=== PATIENT | female | born 1970 | race Caucasian/White ===

== ENCOUNTER 2019-11-06 19:22 | Emergency (ER) | payer OTHER ==
[~2019-11-06] VITALS: Ht 167.7 cm; Wt 120.9 kg
[2019-11-06 19:25] VITALS: BP 159/113
--- OUTSIDE RECORDS SUMMARY | 2019-11-06 19:31 | XMS REPORT ---
Author Author GARCIAPaige Huitron Organization [facility] Address [address] [place] [address] Care Team Providers Care Furnace Mechanic Name Role Phone JOE GARCIA Unavailable PROBLEMS Type Condition ICD9-CM Code [id number] Code Onset Dates Condition S tatus SNOMED Code Problem Hypertension I10 May, Active 3834 1003 Problem Enlarged uterus N85.2 Apr, Active 1 04005594 Problem Generalized anxiety disorder F41.1 May, 2 Active 47514851 Problem Urinary, incontinence, stress female N39.3 Apr, Active 59309135 Problem Hemorrhoid K64.9 Apr, Active 610706 02 Problem Morbid obesity with BMI of 45.0-49.9, adult E66 .01 Apr, Active 853523447 Problem Allergic rhinitis J30.9 Nov, Active 75947339 Problem Insulin resistance E88.81 Apr, Active 188607758 Problem Uterine prolapse N81.4 Apr, Active 11333114 Problem Moderate episode of recurrent major depressive disorder F33.1 Active 510898485 Problem Type 2 diabetes mellitus wit h diabetic polyneuropathy, without long-term current use of insulin E11.42 Active 08818 006 Problem Midline cystocele N81.11 Apr, Active 529745599 Problem Seasonal allergic rhinitis due to pollen J30.1 Active 96546370 Problem Depression F32.9 Apr, Active 957356 005 Problem Essential hypertension I10 Active 42115542 Problem Well woman exam with routine gynecological exam Z0 1.419 Active 505113831 Problem Anxiety F41.9 Active 82177441 Problem Mild intermittent asthma without complication J45. 20 Active 800717025 ALLERGIES No Information ENCOUNTERS Encounter Location Date Diagnosis [address] [place] [address] Jun, Generalized anxiety disorder F41.[address] [place] [address] Apr, Generalized anxiety disorder F41.1 [facility] [address] [place] [address] Mar, UTI (lower urinary tract inf ection) N39.0 and UTI symptoms R39.[address] [place] [address] Feb, Generalized anxiety disorder F41.[address] [place] [address] Feb, Acute recurrent pansinusitis J01.41 and Yeast infection B37.9 [facility] [address] [place] [address] Feb, Seasonal allergic rhinitis d ue to pollen J30.[address] [place] [address] Jan, Generalized anxiety disorder F41.1 [facility] [address] [place] [address] Dec, Dysuria R30.0 and Morbid obe sity E66.01 [facility] [address] [place] [address] Dec, Acute cystitis without hemat uria N30.00 ; UTI symptoms R39.9 and Morbid obesity E66.[address] [place] [address] Dec, Generalized anxiety disorder F41.1 ; Hypertension I10 ; Depression F32.9 ; Type 2 diabetes mellitus with diabetic polyneuropathy, without long-term current use of insulin E11.42 ; Morbid obesity E66.01 and Acute pansinusitis, recurrence not specified J01.40 [address] [place] [address] Dec, Essential hypertension I10 [address] [place] [address] Nov, Anxiety F41.9 [address] [place] [address] October, Anxiety F41.9 [address] [place] [address] October, Acute pansinusitis, recurren ce not specified J01.40 [address] [place] [address] Sep, Anxiety F41.9 [address] [place] [address] Aug, Essential hypertension I10 a nd Type 2 diabetes mellitus with diabetic polyneuropathy, without long-term current use of insulin E11.42 [address] [place] [address] Aug, Well woman exam with routine gynecological exam Z01.419 ; Anxiety F41.9 ; Essential hypertension I10 ; Moderate episode of recurrent major depressive disorder F33.1 ; Mild intermittent asthma without complication J45.20 ; Type 2 diabetes mellitus with diabetic polyneuropathy, without long- term current use of insulin E11.42 ; Yeast dermatitis B37.2 and Morbid obesity E66.01 [address] [facility] [place] [address] Jun, [id number] [place] [address] May, [id number] [place] [address] May, IMMUNIZATIONS No Known Immunizations SOCIAL HISTORY Never Assessed REASON FOR VISIT Lab orders PLAN OF CARE VITAL SIGNS MEDICATIONS Unknown Medications RESULTS No Results PROCEDURES No Known procedures INSTRUCTIONS MEDICATIONS ADMINISTERED No Known Medications MEDICAL (GENERAL) HISTORY Type Description Date Medical History hypertension Medical History anxiety Medical History depression Medical History migraine headaches Medical History acid reflux Surgical History Cataract, both eyes Surgical History dilatation and curettage Surgical History Miscarriage Hospitalization History Miscarriage Hospitalization History childbirth
--- OUTSIDE RECORDS SUMMARY | 2019-11-06 19:31 | XMS REPORT ---
Author Author Paige MCNEIL Organization [facility] Address [address] [place] [address] Care Team Providers Care Hardware Installation Coordinator Name Role Phone DAVIDSON MCNEIL Unavailable PROBLEMS Type Condition ICD9-CM Code [id number] Code Onset Dates Condition S tatus SNOMED Code Problem Well woman exam with routine gynecological exam Z0 1.419 Active 714634701 Problem Anxiety F41.9 Active 73197193 Problem Type 2 diabetes mellitus wit h diabetic polyneuropathy, without long-term current use of insulin E11.42 Active 41692 006 Problem Moderate episode of recurrent major depressive disorder F33.1 Active 747295329 Problem Mild intermittent asthma without complication J45. 20 Active 923688640 Problem Essential hypertension I10 Active 76736870 ALLERGIES Substance Reaction Event Type Date Status Benadryl Unknown Drug Allergy Aug, Active ENCOUNTERS Encounter Location Date Diagnosis [facility] [address] [place] [address] Aug, Well woman exam with routine gynecologic al exam Z01.419 ; Anxiety F41.9 ; Essential hypertension I10 ; Moderate episode of recurrent major depressive disorder F33.1 ; Mild intermittent asthma without complication J45.20 ; Type 2 diabetes mellitus with diabetic polyneuropathy, without long-term current use of insulin E11.42 ; Yeast dermatitis B37.2 and Morbid obesity E66.01 IMMUNIZATIONS No Known Immunizations SOCIAL HISTORY Never Assessed REASON FOR VISIT Well Woman Exam PLAN OF CARE Activity Details Follow Up 3 Months,prn Reason:Anxiety/ DM VITAL SIGNS Height 66 in 2018-08-31 Weight 264 lbs 2018-08-31 BMI 42.61 kg/m2 2018-08-31 Blood pressure systolic 120 mmHg 2018-08-31 Blood pressure diastolic 84 mmHg 2018-08-31 MEDICATIONS Medication Instructions Dosage Frequency Start Date End Date Duration S tatus Hydrochlorothiazide 25 MG Orally Once a day 1 tablet in the morning 24h Active Alprazolam 0.5 MG Orally Twice a day 1 tablet 12h 28 days Active Gabapentin 300 MG Orally Once a day 1 capsule 24h 30 day(s) Active Albuterol Sulfate HFA 108 (90 Base) MCG/ACT Inhalation every 6 hrs 2 puffs as needed 6h Active Meloxicam 15 MG Orally Once a day 1 tablet 24h 30 da y(s) Active Propranolol HCl 20 MG Orally Once a day 1 tablet on an empty stomach 24h Active Metformin HCl 500 MG Orally Once a day 1 tablet with a meal 24h Active Nystatin 874107 UNIT/GM Externally Twice a day 1 application to affected area 12Aug, 14 days Active Singulair 10 MG Orally Once a day 1 tablet 24h 30 da y(s) Active Lexapro 20 MG Orally Once a day 1 tablet 24h Active RESULTS No Results PROCEDURES Procedure Date Ordered Result Body Site SPECIMEN HANDLING August 31, 2018 INSTRUCTIONS MEDICATIONS ADMINISTERED No Known Medications MEDICAL (GENERAL) HISTORY Type Description Date Medical History hypertension Medical History anxiety Medical History depression
--- OUTSIDE RECORDS SUMMARY | 2019-11-06 19:31 | XMS REPORT | Continuity of Care Document ---
Author Organization Unknown Address Unknown Phone Unavailable Allergies There is no data. Medications There is no data. Problems There is no data. Procedures There is no data. Results Test Result Range SUREPATH PAP AND HPV mRNA E6/E7 - 10:36 CLINICAL INFORMATION: NRG LMP: UNKNOWN NRG PREV. PAP: UNKNOWN NRG PREV. BX: UNKNOWN NRG SOURCE: Endocervix NRG STATEMENT OF ADEQUACY: NRG INTERPRETATION/RESULT: NRG WOOL CLASSER: NRG HPV mRNA E6/E7, SUREPATH VIAL Not Detected NOT DETECTED COMMENT NRG CULTURE, URINE - 01/16/19 12:34 CULTURE, URINE, ROUTINE SEE NOTE NRG CULTURE, URINE - 04/26/19 04:24 CULTURE, URINE, ROUTINE SEE NOTE NRG PDM - 09 PANEL (PROFILE 1) - 09/01/19 09 :19 Prescribed Drug 1 Alprazolam NRG Creatinine 156.9 mg/dL > or = 20.0 pH 7.0 4.5-9.0 Oxidant NEGATIVE mcg/mL <200 Amphetamines NEGATIVE ng/mL <500 medMATCH Amphetamines CONSISTENT NRG Benzodiazepines NEGATIVE ng/mL <100 medMATCH Benzodiazepines INCONSISTENT N RG Marijuana Metabolite NEGATIVE ng/mL <20 medMATCH Marijuana Metab CONSISTENT NRG Cocaine Metabolite NEGATIVE ng/mL <150 medMATCH Cocaine Metab CONSISTENT NRG Opiates NEGATIVE ng/mL <100 medMATCH Opiates CONSISTENT NRG Oxycodone NEGATIVE ng/mL <100 medMATCH Oxycodone CONSISTENT NRG COMMENT NRG Barbiturates NEGATIVE ng/mL <300 medMATCH Barbiturates CONSISTENT NRG Methadone Metabolite NEGATIVE ng/mL <100 medMATCH Methadone Metab CONSISTENT NRG Phencyclidine NEGATIVE ng/mL <25 medMATCH Phencyclidine CONSISTENT NRG LIPID PANEL - 10/21/19 09:20 CHOLESTEROL, TOTAL 147 mg/dL <200 HDL CHOLESTEROL 53 mg/dL > OR = 50 TRIGLYCERIDES 190 mg/dL <150 LDL-CHOLESTEROL 68 mg/dL (calc) NRG CHOL/HDLC RATIO 2.8 (calc) <5.0 NON HDL CHOLESTEROL 94 mg/dL (calc) <130 CMP - 10/21/19 09:20 GLUCOSE 84 mg/dL 65-99 UREA NITROGEN (BUN) 12 mg/dL 7-25 CREATININE 0.81 mg/dL 0.50-1.10 eGFR NON-AFR. CHILEAN 86 mL/min/1.73m2 > OR = 60 eGFR 100 mL/min/1.73m2 > OR = 60 BUN/CREATININE RATIO NOT APPLICABLE (calc) 6-22 SODIUM 136 mmol/L 135-146 POTASSIUM 3.5 mmol/L 3.5-5.3 CHLORIDE 103 mmol/L 98-110 CARBON DIOXIDE 24 mmol/L 20-32 CALCIUM 9.1 mg/dL 8.6-10.2 PROTEIN, TOTAL 6.4 g/dL 6.1-8.1 ALBUMIN 3.6 g/dL 3.6-5.1 GLOBULIN 2.8 g/dL (calc) 1.9-3.7 ALBUMIN/GLOBULIN RATIO 1.3 (calc) 1.0-2. 5 BILIRUBIN, TOTAL 0.4 mg/dL 0.2-1.2 ALKALINE PHOSPHATASE 59 U/L 31-125 AST 21 U/L 10-35 ALT 11 U/L 6-29 A1C - 10/21/19 09:20 HEMOGLOBIN A1c 5.7 % of total Hgb <5.7 Encounters ACCT No. Visit Date/Time Discharge Status Pt. Type Provider Facility Loc./Unit Complaint [id number] 10/06/2019 13:00:00 10/06/2019 23:59: 59 [facility] Outpatient DAVIDSON MCNEIL [facility] [id number] 10/21/2019 09:30:00 Document Registration [id number] 09/01/2019 08:20:00 Document Registration [id number] 04/24/2019 11:20:00 Document Registration [id number] 01/16/2019 12:10:00 Document Registration [id number] 08/31/2018 09:00:00 Document Registration
--- NOTE | 2019-11-06 19:49 | Diagnostic Imaging Report ---
INDICATION: Fall with ankle pain. COMPARISON: None available. TECHNIQUE: 3 views of the right ankle were obtained. FINDINGS: There is a small avulsion fracture off the inferior most tip of the lateral malleolus. No fracture of the medial or posterior malleoli. Ankle mortise is congruent. Soft tissue swelling is noted laterally. Small plantar calcaneal spur. IMPRESSION: Acute avulsion fracture in the tip of the lateral malleolus. Dictated by: Dictated on workstation # [id number]
--- NOTE | 2019-11-06 19:51 | ED Lower Extremity ---
General Chief Complaint: Lower Extremity Stated Complaint: FELL AND HURT RIGHT ANKLE Nursing Triage Note: Patient states that she tripped and fell while at her sisters house. Patient is complaining of right ankle pain. Nursing Sepsis Screen: No Definite Risk History of Present Illness Date Seen by Provider: November 06, 2019 Time Seen by Provider: 19:15 Initial Comments Just prior to arrival stepped on a step twisting her right ankle feeling a pop. Severe pain unable to bear weight brought in by wheelchair previous history injury in that ankle on multiple meds for anxiety. Onset: just prior to arrival Pain/Injury Location: right ankle Method of Injury: fell Modifying Factors: Worse With Movement Allergies and Home Medications Allergies Coded Allergies: No Known Drug Allergies (Unverified , 11/06/19) Patient Home Medication List Home Medication List Reviewed: Yes Review of Systems Constitutional: no symptoms reported Musculoskeletal: joint pain, joint swelling Skin: no symptoms reported Psychiatric/Neurological: Denies Numbness, Denies Tingling Past Fgiovsx-Jgqesw-Qncejh Hx Past Med/Social Hx: Reviewed Nursing Past Med/Soc Hx Patient Social History Recent Foreign Travel: No Contact w/Someone Who Travel: No Recent Infectious Disease Expo: No Physical Abuse: No Sexual Abuse: No Mistreated: No Fear: No Physical Exam Vital Signs Vital Signs - First Documented 11/06/19 19:25 Temp 37.0 Pulse 113 Resp 26 B/P (MAP) 159/113 (128) Pulse Ox 98 O2 Delivery Room Air Capillary Refill : Less Than 3 Seconds Height, Weight, BMI Height: '" Weight: lbs. oz. kg; 42.00 BMI Method: General Appearance: WD/WN, mild distress Ankles: left ankle non-tender, left ankle normal inspection; right ankle deformity, right ankle limited range of motion, right ankle pain, right ankle soft tissue tenderness, right ankle swelling Feet: right foot other (poor range of motion due to pain particular tenderness external to the joint.) Neurologic/Psychiatric: no motor/sensory deficits, alert, normal mood/affect, oriented x 3 Skin: normal color, warm/dry Progress/Results/Core Measures Results/Orders My Orders Orders - LAWRENCE RENAE JR, MD Ankle 3 View Right (11/06/19 19:30) Hydrocodone/Apap 5/325 Tablet (Lortab 5 (11/06/19 20:00) Alprazolam Tablet (Xanax Tablet) (11/06/19 20:00) Vital Signs/I&O 11/06/19 19:25 Temp 37.0 Pulse 113 Resp 26 B/P (MAP) 159/113 (128) Pulse Ox 98 O2 Delivery Room Air Blood Pressure Mean: 128 Progress Progress Note : Time: 19:54 Progress Note Avulsion off the tip of the fibula with question of more medial part of the fibula fracture as well. We'll go ahead with with a boot crutches as needed follow-up within the next week with her PCP. Departure Impression Primary Impression: Avulsion fracture of distal fibula Disposition: HOME, SELF-CARE Condition: Stable Departure-Patient Inst. Referrals: DAVIDSON MCNEIL APRN (PCP/Family) Primary Care Physician Patient Instructions: Avulsion Fracture LAWRENCE RENAE JR, MD November 06, 2019 19:51
[2019-11-06] MEDS ORDERED: RX-HYDROCODONE/APAP 5/325 MG #4 TAB PK PO PRN (20:00)
[2019-11-06] MEDS ORDERED: HYDROcodone/APAP 5 MG/325 MG (LORTAB) TAB PO ONE (20:00)
[2019-11-06] MEDS ORDERED: ALPRAZolam 0.25 MG (XANAX) TAB PO ONE (20:00)
== END 2019-11-06 20:08 | disposition home or self-care (01) ==
LOC: ER FS 19:26
DX: S82.831A Other fracture of upper and lower end of right fibula, initial encounter for closed fracture (principal); X50.1XXA Overexertion from prolonged static or awkward postures, initial encounter; Y92.019 Unspecified place in single-family (private) house as the place of occurrence of the external cause
CPT/HCPCS: 73610

== ENCOUNTER → 2019-11-08 | Outpatient (CLI) | payer OTHER ==
--- NOTE | 2019-11-08 10:47 | Diagnostic Imaging Report ---
INDICATION: Right ankle fracture. TECHNIQUE/COMPARISON: AP and lateral views of the right ankle were obtained and compared to 11/06/2019. FINDINGS: There is a curvilinear calcification, compatible with an avulsed fragment off the inferior tip of the lateral malleolus of the distal fibula. This is unchanged in size and appearance compared to the prior study. The remaining bony structures are intact. There is some plantar calcaneal spurring. Soft tissue swelling is noted. IMPRESSION: Stable avulsion fracture off the tip of the distal fibula. Soft tissue swelling. No new abnormality. Dictated by: Dictated on workstation # [id number]
== END ==
LOC: RAD FS 09:45
PROVIDERS: ATTEND Nurse Practitioner
DX: S82.301A Unspecified fracture of lower end of right tibia, initial encounter for closed fracture (principal); X58.XXXA Exposure to other specified factors, initial encounter
CPT/HCPCS: 73600

== ENCOUNTER → 2019-11-24 | Outpatient (CLI) | payer OTHER ==
--- NOTE | 2019-11-24 09:07 | Diagnostic Imaging Report ---
EXAMINATION: Right ankle, 3 views INDICATION: Follow-up of fracture. COMPARISON: Prior ankle radiographs performed on 11/06/2019 and 11/08/2019. FINDINGS: Again demonstrated is an avulsion fracture involving the distal aspect of the fibula, with no significant change in avulsed fracture fragment inferior to the lateral malleolus. No prominent periosteal reaction is demonstrated. No new fracture is identified. The ankle mortise appears intact, including medial and lateral clear space. No osteochondral lesion of the talar dome is appreciated. Incidental note is made of a small plantar calcaneal spur. There is persistent edema in the ankle soft tissues. IMPRESSION: No change in avulsion fracture of the distal fibula. No new fracture or acute osseous abnormality. There is persistent edema of the ankle soft tissues. Dictated by: Dictated on workstation # [id number]
== END ==
LOC: RAD FS 08:27
PROVIDERS: ATTEND Nurse Practitioner
DX: S82.831A Other fracture of upper and lower end of right fibula, initial encounter for closed fracture (principal); X58.XXXA Exposure to other specified factors, initial encounter
CPT/HCPCS: 73610

== ENCOUNTER → 2020-11-14 | Outpatient (CLI) | payer OTHER ==
--- NOTE | 2020-11-14 11:09 | Diagnostic Imaging Report ---
INDICATION: Back pain. Time of exam 10:53 a.m. Alignment is normal. Vertebral body heights are maintained. No acute compression fracture is seen. There is generalized lumbar spondylosis with variable disc space narrowing and marginal spurring. This appears greatest at the L5-S1 level. Lower lumbar facet arthropathy is also noted. IMPRESSION: Lumbar spondylosis. No acute bony abnormality is detected. Dictated by: Dictated on workstation # [id number]
== END ==
LOC: RAD 10:35
PROVIDERS: ATTEND Family Medicine
DX: Z02.71 Encounter for disability determination (principal); M47.816 Spondylosis without myelopathy or radiculopathy, lumbar region
CPT/HCPCS: 72100

== ENCOUNTER → 2021-02-19 | Outpatient (CLI) | payer OTHER ==
[~2021-02-19] MED LIST: RT-ALBUTEROL SULF 2.5 MG/3 ML PRE-MIX VIAL INH ONE
== END ==
LOC: RT 09:30
PROVIDERS: ATTEND Internal Medicine Cardiovascular Disease
DX: R07.9 Chest pain, unspecified (principal); R06.00 Dyspnea, unspecified
CPT/HCPCS: 93306; 94060; 94726; 94729

== ENCOUNTER → 2021-03-07 | Outpatient (CLI) | payer OTHER ==
[2021-03-07 10:43] VITALS: BP 129/79
--- NOTE | 2021-03-07 17:09 | Cardiology Stress Test Report ---
Stress Test Report Date of Procedure/Referring: Date of Procedure: Mar 07, 2021 PCP Osbaldo Hillman Jr, MD Admitting Physician Indications: Chest pain. Baseline Blood Pressure: Blood Pressure Systolic: 129 Blood Pressure Diastolic: 79 Baseline EKG: Baseline EKG: Sinus rhythm with short CT interval. Summary/Conclusion: PROCEDURE: The patient was exercised for a total of 3 minutes of the standard Bebo protocol achieving a maximum MET level of 4.6. The resting heart rate was 81 bpm and the peak heart rate was 161 bpm, which represents 94% of the maximum predicted heart rate. The resting blood pressure was 129/79 mmHg and the peak blood pressure was 169/75 mmHg. This represents a tachycardic heart rate and a normal blood pressure response to exercise. The test was stopped due to shortness of breath. There was no exercise-induced chest discomfort, arrhythmias, or electrocardiogram changes during the test. The patient exhibited poor exercise capacity for age. IMPRESSION: 1. Tachycardic heart rate and a normal blood pressure response to exercise. 2. There was no exercise-induced chest discomfort, arrhythmias, or electrocardiogram changes during the test. 3. The patient exhibited poor exercise capacity for age at 3 minutes of the Bebo protocol. 4. This is negative exercise treadmill test other than findings consistent with significant exercise intolerance and deconditioning. Certain portions of this document may have been dictated utilizing voice recognition technology. Inherent to this technology, typographical and grammatical errors may exist. As much as I am diligent to identify and correct these mistakes, some errors may remain in the document. OSBALDO HILLMAN JR, MD Mar 07, 2021 17:09
== END ==
LOC: CARD 11:00
PROVIDERS: ATTEND Internal Medicine Cardiovascular Disease
DX: R07.9 Chest pain, unspecified (principal)
CPT/HCPCS: 93017

== ENCOUNTER → 2021-03-29 | Outpatient (CLI) | payer OTHER ==
--- NOTE | 2021-03-29 12:19 | Diagnostic Imaging Report ---
EXAMINATION: Chest 2 view HISTORY: Short of breath COMPARISON: None available. FINDINGS: The lungs are clear without edema or pneumonia. No pleural effusion or pneumothorax. Heart size is normal. IMPRESSION: 1. Clear lungs. Dictated by: Dictated on workstation # [id number]
== END ==
LOC: RAD 11:16
PROVIDERS: ATTEND Internal Medicine Cardiovascular Disease
DX: R06.09 Other forms of dyspnea (principal)
CPT/HCPCS: 71046

== ENCOUNTER → 2021-05-09 | Outpatient (CLI) | payer OTHER ==
--- NOTE | 2021-05-09 12:36 | Diagnostic Imaging Report ---
EXAMINATION: Right knee radiographs, 3 views. COMPARISON: None. HISTORY: 50-year-old female, right knee pain. FINDINGS: The joint spaces are well preserved. There is no knee joint effusion. There is no identified acute fracture. There is no identified bone lesion. IMPRESSION: Unremarkable radiographs of the right knee. Dictated by: Dictated on workstation # [id number]
== END ==
LOC: RAD 10:19
PROVIDERS: ATTEND Internal Medicine Rheumatology
DX: M25.561 Pain in right knee (principal)
CPT/HCPCS: 73562

== ENCOUNTER 2021-07-25 15:39 | Emergency (ER) | payer OTHER ==
[~2021-07-25] VITALS: Ht 167.7 cm; Wt 125.2 kg
--- NOTE | 2021-07-25 16:05 | ED General ---
General Chief Complaint: COVID19 Suspect/Confirmed Stated Complaint: SOA,COUGH Source of Information: Patient Exam Limitations: No Limitations History of Present Illness Date Seen by Provider: Jul 25, 2021 Time Seen by Provider: 15:45 Initial Comments Patient is 50 year old female with history of asthma who presents with acute asthma exacerbation. Patient reports shortness of breath with wheezing and occasional cough for the past 4 days. Patient states she is currently out of Singulair and kept her dose of asthma medication yesterday. No fevers chills, nausea vomiting or sweats. Previous Covid infection. No other acute symptoms or complaints. Timing/Duration: 2-3 Days Severity: Mild Modifying Factors: improves with Other Associated Systoms: Other Allergies and Home Medications Allergies Coded Allergies: No Known Drug Allergies (Unverified , 11/06/19) Patient Home Medication List Home Medication List Reviewed: Yes Review of Systems Review of Systems Constitutional: see HPI EENTM: see HPI Respiratory: see HPI Cardiovascular: see HPI Gastrointestinal: see HPI Genitourinary: see HPI Musculoskeletal: see HPI Skin: see HPI Psychiatric/Neurological: See HPI Hematologic/Lymphatic: See HPI All Other Systems Reviewed Negative Unless Noted: Yes Past Esedtld-Jpeltb-Wjoeqn Hx Patient Social History Tobacco Use?: No Smoking Status: Never a Smoker Smokeless Tobacco Frequency: Never a User Use of E-Cig and/or Vaping dev: No Use of E-Cig and/or Vaping Romeo: Never a User Substance use?: No Alcohol Use?: No Pt feels they are or have been: No Seasonal Allergies Seasonal Allergies: Yes Past Medical History Surgeries: Yes (Cataracts, D&C) Respiratory: No Cardiac: Yes (Tachycardia) Neurological: No Genitourinary: No Gastrointestinal: No Musculoskeletal: No Endocrine: No HEENT: No Cancer: No Psychosocial: Yes Anxiety Physical Exam Vital Signs Vital Signs - First Documented Capillary Refill : Height, Weight, BMI Height: '" Weight: lbs. oz. kg; 42.00 BMI Method: General Appearance: No Apparent Distress, Anxious Eyes: Bilateral Eye Normal Inspection, Bilateral Eye PERRL, Bilateral Eye EOMI HEENT: PERRL/EOMI, TMs Normal, Normal ENT Inspection, Pharynx Normal Neck: Full Range of Motion, Non Tender, Supple Respiratory: Chest Non Tender, Decreased Breath Sounds, Wheezing Cardiovascular: Regular Rate, Rhythm, No Edema Gastrointestinal: Non Tender, Soft Extremity: Normal Capillary Refill, Non Tender, No Calf Tenderness Neurologic/Psychiatric: Alert, Oriented x3 Skin: Normal Color, Warm/Dry Focused Exam Sepsis Stage: Ruled Out Progress/Results/Core Measures Suspected Sepsis SIRS Temperature: Pulse: Respiratory Rate: Blood Pressure / Mean: Results/Orders My Orders Orders - LISETH HERNANDEZ DO Dexamethasone Oral Soln (Ed) (Decadron I (07/25/21 16:04) Vital Signs/I&O 07/25/21 07/25/21 15:45 15:45 Temp 36.9 Pulse 95 Resp 14 B/P (MAP) 153/88 (109) O2 Delivery Room Air Room Air Capillary Refill : Departure Communication (Admissions) Mild persistent asthma exacerbation. Decadron given. Will refill Singulair and prescribe steroids. Patient instructed to resume daily asthma medications and follow-up with her PCP. Return precautions reviewed. Patient verbalizes understanding agreement discharge instructions prior to departure. Impression Primary Impression: Asthma exacerbation Disposition: HOME, SELF-CARE Condition: Stable Departure-Patient Inst. Decision time for Depature: 16:22 Referrals: DAVIDSON MCNEIL APRN (PCP/Family) Primary Care Physician Patient Instructions: Asthma, Adult ED Add. Discharge Instructions: Please fill Singulair and prednisone take as directed. Resume all other asthma medications. Follow-up with your PCP in 3 to 5 days. Return to the ED if new or worsening symptoms. All discharge instructions reviewed with patient and/or family. Voiced understanding. Scripts Prednisone (Prednisone) 20 Mg Tab 60 MG PO DAILY, #15 TAB 0 Refills Prov: LISETH HERNANDEZ DO 07/25/21 Montelukast Sodium (Singulair) 10 Mg Tablet 10 MG PO DAILY, #30 TAB Prov: LISETH HERNANDEZ DO 07/25/21 LISETH HERNANDEZ DO Jul 25, 2021 16:05
[2021-07-25] MEDS ORDERED: MONT10TA21 PO (16:24)
[2021-07-25] MEDS ORDERED: PRD20T PO (16:24)
[2021-07-25 16:28] VITALS: BP 141/80
== END 2021-07-25 16:27 | disposition home or self-care (01) ==
LOC: EDUNIT# 15:39 → ER FS 15:41
DX: J45.901 Unspecified asthma with (acute) exacerbation (principal)
CPT/HCPCS: 99283

== ENCOUNTER 2023-01-12 02:27 | Emergency (ER) | payer OTHER ==
[~2023-01-12 02:27] MED LIST changes: +MONT-47 PO; +PRD20T PO; -RT-ALBUTEROL SULF 2.5 MG/3 ML PRE-MIX VIAL INH ONE
--- NOTE | 2023-01-12 02:40 | ED Fall/Injury ---
General Stated Complaint: FALL| LEFT ARM PAIN|LEFT ANKLE PAIN History of Present Illness Date Seen by Provider: Jan 12, 2023 Time Seen by Provider: 02:32 Initial Comments 52 yr female is here with complaints of left elbow and forearm pain and right ankle pain and swelling after she tripped and fell on the curb of the sidewalk today. Patient is unable to bear weight on her ankle. Denies head strike, LOC, dizziness. Allergies and Home Medications Allergies Coded Allergies: No Known Drug Allergies (Unverified , 11/06/19) Patient Home Medication List Home Medication List Reviewed: Yes Montelukast Sodium (Singulair) 10 Mg Tablet, 10 MG PO DAILY Prescribed by: LISETH HERNANDEZ on 07/25/211623 Prednisone (Prednisone) 20 Mg Tab, 60 MG PO DAILY Prescribed by: LISETH HERNANDEZ on 07/25/211623 Review of Systems Review of Systems Constitutional: no symptoms reported Eyes: No Symptoms Reported Ears, Nose, Mouth, Throat: no symptoms reported Respiratory: no symptoms reported Cardiovascular: no symptoms reported Gastrointestinal: no symptoms reported Genitourinary: no symptoms reported Musculoskeletal: joint pain, joint swelling Skin: no symptoms reported Psychiatric/Neurological: No Symptoms Reported Past Fywcorq-Dyhuwt-Pwtrja Hx Seasonal Allergies Seasonal Allergies: Yes Past Medical History Surgeries: Yes (Cataracts, D&C) Respiratory: No Cardiac: Yes (Tachycardia) Neurological: No Genitourinary: No Gastrointestinal: No Musculoskeletal: No Endocrine: No HEENT: No Cancer: No Psychosocial: Yes Anxiety Physical Exam Vital Signs Vital Signs - First Documented 01/12/23 02:30 Temp 36.3 Pulse 82 Resp 18 B/P (MAP) 123/91 (102) Pulse Ox 98 O2 Delivery Room Air Capillary Refill : Height, Weight, BMI Height: '" Weight: lbs. oz. kg; 44.00 BMI Method: General Appearance: WD/WN, no apparent distress, obese HEENT: PERRL/EOMI Neck: full range of motion Extremities: other (Left upper extremity: No obvious deformity seen, no bruises, no swelling. Tenderness present to the elbow as well as the medial one third of the forearm. Right ankle: Swelling and tenderness to the right lateral malleolus area. Patient is unable to bear weight. N/V bundle intact for both extremities that are affected.) Neurologic/Psychiatric: no motor/sensory deficits, alert, oriented x 3 Progress/Results/Core Measures Results/Orders My Orders Orders - MOHAN MALIK MD Ice: Apply To Affected Area (01/12/23 02:35) Ankle 3 View Right (01/12/23 02:37) Elbow 3 View Left (01/12/23 02:37) Forearm 2 View Left (01/12/23 02:37) Ketorolac Injection (Toradol Injection) (01/12/23 03:15) Vital Signs/I&O 01/12/23 02:30 Temp 36.3 Pulse 82 Resp 18 B/P (MAP) 123/91 (102) Pulse Ox 98 O2 Delivery Room Air Progress Progress Note : Progress Note 1. FALL: RIGHT ANKLE SPRAIN & LEFT ELBOW CONTUSION - XR LEFT FOREARM/ ELBOW: possible fracture on radial head which may be old. - XR RIGHT ANKLE: no fracture, calcaneal spur seen on heel - Ice application - Toradol injection in ER - HERVE bandage to ankle. Pt has walker at home - Sling and splint to left extremity - Follow up with Ortho within 7 to 10 days. Call to make appointment. -The patient was seen in the ED, and treated appropriately to presentation at a specific point in time. Patient is informed that there is a possibility that disease and illness can evolve and change in acuity rapidly or slowly after patient is discharged from the ER. Precautionary advice given to the patient for immediate return to ER if symptoms worsen or do not resolve, and to seek emergency care sooner rather than later. Pt also advised on the importance of PCP follow up and compliance with management and follow up plan with PCP and/or specialist, as this is part of the management plan. Pt verbally expressed understanding. Diagnostic Imaging Diagonstic Imaging: Xray Plain Films/CT/US/NM/MRI: forearm, elbow, ankle Departure Impression Primary Impression: Right ankle sprain Qualified Codes: S93.401A - Sprain of unspecified ligament of right ankle, initial encounter Additional Impressions: Left elbow contusion Qualified Codes: S50.02XA - Contusion of left elbow, initial encounter Fracture of radial head, left, closed Disposition: 01 HOME, SELF-CARE Condition: Stable Departure-Patient Inst. Referrals: DAVIDSON MCNEIL APRN (PCP/Family) Primary Care Physician Patient Instructions: Ankle Sprain (DC), Contusion (DC), Elbow Fracture (DC) Add. Discharge Instructions: - HERVE bandage to ankle. Pt has walker at home - Sling and splint to left extremity - Ice application advised - Follow up with Ortho within 7 to 10 days. Call to make appointment. MOHAN MALIK MD Jan 12, 2023 02:40
[2023-01-12] MEDS ORDERED: KETOROLAC 30 MG/ML VIAL IM ONE (03:15)
[2023-01-12] MEDS ORDERED: KETOROLAC 30 MG/ML VIAL ONE (03:19)
[2023-01-12 03:21] VITALS: BP 123/91
--- NOTE | 2023-01-12 07:41 | Diagnostic Imaging Report ---
INDICATION: Fall, pain. COMPARISON: Imaging from same date TECHNIQUE: 2 radiographs of left forearm dated 01/12/2023. FINDINGS: Acute nondisplaced radial head fracturing is present with extension to the elbow joint without significant depression. Elbow joint effusion is present. No additional acute fracture or dislocation. No destructive osseous process. No suspicious radiopaque foreign body. IMPRESSION: Acute nondisplaced radial head fracture with intra-articular extension to the elbow joint with associated elbow joint effusion. Dictated by: Dictated on workstation # [id number]
--- NOTE | 2023-01-12 07:42 | Diagnostic Imaging Report ---
Indication: Pain, fall COMPARISON: Imaging from the same date TECHNIQUE: 3 radiographs of the left elbow dated 01/12/2023 FINDINGS: A nondisplaced radial head fracture is present with intra-articular extension to the radiocapitellar joint. No additional fracture or dislocation. No destructive osseous process. Elbow joint effusion present. No suspicious radiopaque foreign body. IMPRESSION: Acute nondisplaced radial head fracture with intra-articular extension to the elbow joint with associated elbow joint effusion present. Dictated by: Dictated on workstation # [id number]
--- NOTE | 2023-01-12 07:43 | Diagnostic Imaging Report ---
Indication: Fall COMPARISON: 11/24/2019 TECHNIQUE: 3 radiographs of the right ankle dated 01/12/2023 FINDINGS: Chronic fracture involving the tip of the lateral malleolus is noted. No new fracture or dislocation. The talar dome is unremarkable. Ankle mortise is maintained given positioning. Small plantar calcaneal enthesophyte. No suspicious radiopaque foreign body. IMPRESSION: No acute osseous abnormality with chronic fracture involving the tip of the lateral malleolus. Dictated by: Dictated on workstation # [id number]
== END 2023-01-12 03:22 | disposition home or self-care (01) ==
LOC: EDUNIT# 02:27 → ER FS 02:29
DX: S52.122A Displaced fracture of head of left radius, initial encounter for closed fracture (principal); S93.491A Sprain of other ligament of right ankle, initial encounter; S50.02XA Contusion of left elbow, initial encounter; E66.9 Obesity, unspecified; Z68.41 Body mass index [BMI] 40.0-44.9, adult; Z28.310 Unvaccinated for COVID-19; W10.1XXA Fall (on)(from) sidewalk curb, initial encounter; Y92.480 Sidewalk as the place of occurrence of the external cause
CPT/HCPCS: 29125; 73080; 73610